=== PATIENT | female | born 1980 | race Caucasian/White ===

== ENCOUNTER 2017-08-20 16:53 | Emergency (ER) | payer OTHER ==
[2017-08-20 17:27] LABS: COLOR YELLOW; LEUKOCYTE ESTERASE,URINE TRACE (NEGATIVE); NITRITE,URINE NEGATIVE (NEGATIVE)
[2017-08-20 17:34] LABS: MUCUS 2+ /lpf (NONE-1+)
--- NOTE | 2017-08-20 18:41 | EDPHY ---
H & P Smoking Status: Never smoked Time Seen by Provider: 08/20/17 18:07 HPI/ROS: CHIEF COMPLAINT: "I think I have a bladder infection " HISTORY OF PRESENT ILLNESS: 37-year-old immunocompetent female complaining of ongoing dysuria, increased frequency, suprapubic cramping for the past several weeks, has been on a course of antibiotics but can symptoms continue. Cannot remember the name of the antibiotic. Prescribed the [facility]. No fever no chills. No flank pain. No headache. No nuchal rigidity. No nausea or vomiting. PRIMARY CARE PROVIDER: the [facility] REVIEW OF SYSTEMS: A ten point review of systems was performed and is negative with the exception of the items mentioned in the HPI PAST MEDICAL & SURGICAL HISTORY: No pertinent medical or surgical history SOCIAL HISTORY: Nonsmoker PHYSICAL EXAM (Prior to examination, patient consented to physical exam, hands were washed and my usual and customary physical exam procedures followed) 1) GENERAL: Well-developed, well-nourished, alert and oriented. Appears nontoxic, appears well 2) HEAD: Normocephalic, atraumatic 3) HEENT: Pupils equal, round, reactive to light bilaterally. Sclera anicteric. 4) NECK: Full range of motion, no meningeal signs. 5) LUNGS: Clear auscultation bilaterally, no wheezes, no rhonchi, no retractions. 6) HEART: Regular rate and rhythm, no murmur, no heave, no gallop. 7) ABDOMEN: No guarding, no rebound, no focal tenderness, negative McBurney's, negative Robledo's, negative Rovsing's, negative peritoneal sign, unable to elicit any abdominal pain 8) MUSCULOSKELETAL: Moving all extremities, no focal areas of tenderness, no obvious trauma. No peripheral edema or discoloration. 9) BACK: No CVA tenderness. 10) SKIN: No rash, no petechiae. 11) Psychiatric: Patient is oriented X 3, there is no agitation. DIFFERENTIAL DIAGNOSIS: in no particular include but limited to ectopic , cystitis, pyelonephritis, urosepsis, nephrolithiasis (Derrek,Ijeoma Teetee) Constitutional: Initial Vital Signs Temperature (C) 36.9 C 08/20/17 17:01 Heart Rate 86 08/20/17 17:01 Respiratory Rate 16 08/20/17 17:01 Blood Pressure 104/67 08/20/17 17:01 O2 Sat (%) 97 08/20/17 17:01 O2 Delivery Mode Room Air Allergies/Adverse Reactions: No Known Allergies Allergy (Verified 08/20/17 17:01) Home Medications: Medication Instructions Recorded No Medications [No Meds] 1 ea MISC 09/30/12 Cephalexin [Keflex] 500 mg PO TID 7 Days cap 08/20/17 Phenazopyridine HCl [Pyridium] 200 mg PO PC #10 tab 08/20/17 MDM/Departure - MDM ED Course/Re-evaluation: I feel the patient can be treated on an outpatient basis as I believe her to be a competent decision-maker, shows no signs of urosepsis, afebrile, no comorbid medical conditions. Nonetheless, I have provided acute urinary tract infection red flag signs and symptoms precautions, and reasons to return to the emergency department. Urine has been cultured. [facility] I recommend she review the culture results from her last visit. Started on Keflex and Pyridium. (Ijeoma Anglin) I did not see this patient while she was in the emergency department. However her care was discussed with the PA while the patient was in the department. I agree with treatment plan and management (Franck Lilly) - Depart Disposition: Home, Routine, Self-Care Clinical Impression: Cystitis Condition: Good Instructions: Urinary Tract Infection in Women (ED) Additional Instructions: Return to the ER immediately if you experience fevers/chills, flu like symptoms , inability to tolerate oral intake, nausea or vomiting, or any other symptoms that concern you. Prescriptions: Cephalexin [Keflex] 500 mg PO TID 7 Days cap Phenazopyridine HCl [Pyridium] 200 mg PO PC #10 tab Referrals: [facility] [Other] - 1 day without fail
[2017-08-20 18:47] VITALS: BP 109/67; PULSE 73; RESP 18; TEMP 98.1; O2SAT 95
== END 2017-08-20 18:54 | disposition home or self-care (01) ==
DX: N30.90 Cystitis, unspecified without hematuria (principal); B96.20 Unspecified Escherichia coli [E. coli] as the cause of diseases classified elsewhere